=== PATIENT | male | born 1945 | race Caucasian/White ===

== ENCOUNTER 2018-02-10 10:07 | Observation (INO) ==
--- NOTE | 2018-02-10 10:25 | Emergency Department Note ---
Disposition Clinical Impression: Generalized weakness, Pain in left hip Fall with injury Qualifiers: Encounter type: initial encounter Qualified Code(s): W19.XXXA - Unspecified fall, initial encounter Disposition: Admitted As Inpatient Condition: Fair Referrals: Kalpesh Bartlett MD [Primary Care Provider] - Forms: ED Satisfaction Letter Time of Disposition: 11:36 Fall HPI - General Chief Complaint: ED Fall Stated Complaint: Left hip pain Time Seen by Provider: 02/10/18 10:15 Source: patient, family Mode of arrival: ambulatory Limitations: no limitations Nursing Notes Reviewed: Yes Vital Signs Reviewed: Yes - History of Present Illness HPI Narrative: Nontoxic-appearing 72-year-old male with a history of progressive supranuclear palsy presents for evaluation of left hip pain status post fall yesterday at home. The patient's states a history of progressively more frequent falls at home due to his underlying condition. The patient states that he just loses balance and falls directly back, landing on his buttocks. He denies any other injury. He denies any headache, neck pain, or back pain. Both he and his states that it has gotten to the point that they are considering placement into an extended care facility. Pt Subjective Complaint: fall Fall From: standing Place Fall Occurred: home Loss of Consciousness: none Prolonged Down Time?: no Symptoms Prior to Fall: none Location of injury: hip Location of injury - extremities: Left: hip Severity: moderate Severity scale (1-10): 7 Quality: dull, aching Associated symptoms (after fall): Reports: denies. Denies: headache, neck pain - Related Data Home Medications Medication Instructions Recorded Confirmed Aspirin Enteric Coated [Aspirin EC] 81 mg PO DAILY 04/23/15 04/23/15 Cholecalciferol (Vitamin D3) 800 unit PO DAILY 04/23/15 04/23/15 [Vitamin D3] Losartan [Cozaar] 25 mg PO QAM 04/23/15 04/23/15 Metoprolol [Lopressor] 12.5 mg PO BID 04/23/15 04/23/15 Niacin 100 mg PO DAILY 04/23/15 04/23/15 Nitroglycerin [Nitrostat] 0.4 mg SL AD PRN 04/23/15 04/23/15 [place]-3S/Dha/Epa/Fish Oil [Fish 600 mg PO TID 04/23/15 04/23/15 Oil 1,200 mg Softgel] Simvastatin [Zocor] 40 mg PO HS 04/23/15 04/23/15 Ubidecarenone [Co Q-10] 10 mg PO DAILY 04/23/15 04/23/15 Previous Rx's Medication Instructions Recorded OxyCODONE Immed Rel [Roxicodone 5 5 - 10 mg PO Q6HR PRN #40 tablet 04/23/15 MG] Hydrocodone/Acetaminophen [[place] 1 tab PO Q6H PRN #8 tab 04/03/16 5-325 Tablet] Allergies Allergy/AdvReac Type Severity Reaction Status Date / Time losartan Allergy See Verified 11/10/17 02:19 Comments atorvastatin [From Lipitor] AdvReac See Verified 11/10/17 02:06 Comments lisinopril AdvReac Cough Verified 11/10/17 02:06 niacin AdvReac Nausea Verified 11/10/17 02:06 [From Niaspan Extended-Release] All systems ED: reviewed and negative except as stated. Constitutional: Denies: fever, chills, weakness, weight change Eyes: Denies: eye pain, eye discharge, vision change ENT ED: Denies: ear pain, throat pain, dental pain, hearing loss, epistaxis, congestion, dysphagia Cardiovascular: Denies: chest pain, palpitations, dyspnea on exertion, edema, syncope Respiratory: Denies: cough, dyspnea, wheezes, hemoptysis, stridor Gastrointestinal: Denies: abdominal pain, nausea, vomiting, diarrhea, constipation, hematemesis, melena, hematochezia Genitourinary: Denies: urgency, dysuria, frequency, hematuria Musculoskeletal: Reports: as per HPI, arthralgia (Left hip pain). Denies: back pain, neck pain, myalgia Integumentary: Denies: rash, abrasion, lesions Neurological: Denies: headache, weakness, numbness, paresthesias, confusion, abnormal gait, vertigo Psychiatric: Denies: anxiety, depression, suicidal thoughts, homicidal thoughts , auditory hallucinations, visual hallucinations Endocrine: Denies: fatigue Hematological/Lymphatic: Denies: easy bleeding, easy bruising Allergic/Immunologic: Denies: facial swelling, urticaria Fall PMH - Past Medical History Medical history: Reports: hypertension, myocardial infarction Psychiatric history: Reports: no psych history - Social History Smoking Status: Never smoker Alcohol use: Reports: none Drug use: Reports: none Physical Exam - General Limitations: no limitations General appearance: alert, in no apparent distress - Head Head exam: atraumatic, normocephalic, normal inspection - Eye Eye exam: Present: normal appearance, PERRL, EOMI. Absent: nystagmus - ENT ENT exam: mucous membranes moist - Neck Neck exam: Present: normal inspection, full ROM, trachea midline - Chest Chest inspection: Present: normal inspection, symmetric chest wall rise. Absent : tenderness - Abdominal Exam Abdominal exam: Present: soft, Non-Tender - Expanded Lower Extremity Exam Hip/Pelvis exam: Present: tenderness (Left hip tender to palpation diffusely), pelvis stable. Absent: full ROM (Range of motion limited by pain, left hip), deformity, crepitus, external rotation, internal rotation, shortening Upper leg exam: Present: normal inspection, full ROM Knee exam: Present: normal inspection, full ROM Lower leg exam: Present: normal inspection, full ROM Ankle exam: Present: normal inspection, full ROM Foot/toe exam: Present: normal inspection, full ROM Neurovascular/Tendon exam: Present: normal capillary refill. Absent: pulse deficit, motor deficit, sensory deficit, tendon deficit, extremity cold to touch Gait: not tested/not observed - Back Exam Back exam: Present: normal inspection, full ROM. Absent: tenderness, vertebral tenderness - Neurological Exam Neurological exam: Present: alert, oriented X3 - Psychiatric Psychiatric exam: Present: normal affect, normal mood - Skin Skin exam: Present: warm, dry, intact, normal color Course Course Narrative: I have spoken with the social work or building contractor regarding the patient and spouse' s request for the possibility of [facility] facility placement. After evaluation by the social economist, the patient will require an observation period in the hospital before placement can be achieved. 1100: I spoke with Dr. Holguin, of the hospitalist services agreed to accept the patient for admission to the hospitalist care for observation. I discussed this patient's case with Dr. Rogers. Dr. Rogers has had a [id number] evaluation with the patient as well and agrees with the aforementioned plan. Upon further questioning, the patient's spouse states that several days ago, the patient did hit the right side of his head when he fell. Given the patient' s age and that he is on aspirin, a CT without contrast of the head and brain will be obtained. We will also complete some screening labs as the patient has complained of progressive generalized weakness as well. Vital Signs Temperature 98.2 F 02/10/18 10:16 Pulse Rate 84 02/10/18 10:16 Respiratory Rate 16 02/10/18 10:16 Blood Pressure 123/82 02/10/18 10:16 O2 Sat by Pulse Oximetry 96 02/10/18 10:16 Temperature 98.2 F 02/10/18 10:16 Pulse Rate 84 02/10/18 10:16 Respiratory Rate 16 02/10/18 10:16 Blood Pressure 123/82 02/10/18 10:16 O2 Sat by Pulse Oximetry 96 02/10/18 10:16 Oxygen Delivery Oxygen Delivery Room Air Fall - Medical Records Medical records reviewed: Yes I reviewed the patient's medical records. - Lab Data Lab results reviewed: Yes I reviewed the patient's lab results. - Radiology Data Radiology results reviewed: Yes I reviewed the patient's radiology results.
--- NOTE | 2018-02-10 11:31 | Emergency Department Note ---
Disposition Clinical Impression: Generalized weakness, Pain in left hip Fall with injury Qualifiers: Encounter type: initial encounter Qualified Code(s): W19.XXXA - Unspecified fall, initial encounter Disposition: Admitted As Inpatient Condition: Fair Fall HPI - General Chief Complaint: ED Fall Stated Complaint: Left hip pain Time Seen by Provider: 02/10/18 10:15 Source: patient, family Mode of arrival: ambulatory - History of Present Illness Place Fall Occurred: home Associated symptoms (after fall): Reports: denies. Denies: headache, neck pain - Related Data Home Medications Medication Instructions Recorded Confirmed Aspirin Enteric Coated [Aspirin EC] 81 mg PO DAILY 04/23/15 04/23/15 Cholecalciferol (Vitamin D3) 800 unit PO DAILY 04/23/15 04/23/15 [Vitamin D3] Losartan [Cozaar] 25 mg PO QAM 04/23/15 04/23/15 Metoprolol [Lopressor] 12.5 mg PO BID 04/23/15 04/23/15 Niacin 100 mg PO DAILY 04/23/15 04/23/15 Nitroglycerin [Nitrostat] 0.4 mg SL AD PRN 04/23/15 04/23/15 [place]-3S/Dha/Epa/Fish Oil [Fish 600 mg PO TID 04/23/15 04/23/15 Oil 1,200 mg Softgel] Simvastatin [Zocor] 40 mg PO HS 04/23/15 04/23/15 Ubidecarenone [Co Q-10] 10 mg PO DAILY 04/23/15 04/23/15 Previous Rx's Medication Instructions Recorded OxyCODONE Immed Rel [Roxicodone 5 5 - 10 mg PO Q6HR PRN #40 tablet 04/23/15 MG] Hydrocodone/Acetaminophen [[place] 1 tab PO Q6H PRN #8 tab 04/03/16 5-325 Tablet] Allergies Allergy/AdvReac Type Severity Reaction Status Date / Time losartan Allergy See Verified 11/10/17 02:19 Comments atorvastatin [From Lipitor] AdvReac See Verified 11/10/17 02:06 Comments lisinopril AdvReac Cough Verified 11/10/17 02:06 niacin AdvReac Nausea Verified 11/10/17 02:06 [From Niaspan Extended-Release] Constitutional: Denies: fever, chills, weakness, weight change Eyes: Denies: eye pain, eye discharge, vision change ENT ED: Denies: ear pain, throat pain, dental pain, hearing loss, epistaxis, congestion, dysphagia Cardiovascular: Denies: chest pain, palpitations, dyspnea on exertion, edema, syncope Respiratory: Denies: cough, dyspnea, wheezes, hemoptysis, stridor Gastrointestinal: Denies: abdominal pain, nausea, vomiting, diarrhea, constipation, hematemesis, melena, hematochezia Genitourinary: Denies: urgency, dysuria, frequency, hematuria Musculoskeletal: Reports: as per HPI, arthralgia (Left hip pain). Denies: back pain, neck pain, myalgia Integumentary: Denies: rash, abrasion, lesions Neurological: Denies: headache, weakness, numbness, paresthesias, confusion, abnormal gait, vertigo Psychiatric: Denies: anxiety, depression, suicidal thoughts, homicidal thoughts , auditory hallucinations, visual hallucinations Endocrine: Denies: fatigue Hematological/Lymphatic: Denies: easy bleeding, easy bruising Allergic/Immunologic: Denies: facial swelling, urticaria Fall PMH - Past Medical History Medical history: Reports: hypertension, myocardial infarction Psychiatric history: Reports: no psych history - Social History Smoking Status: Never smoker Alcohol use: Reports: none Drug use: Reports: none Physical Exam - General Limitations: no limitations General appearance: alert, in no apparent distress Course Vital Signs Temperature 98.2 F 02/10/18 10:16 Pulse Rate 84 02/10/18 10:16 Respiratory Rate 16 02/10/18 10:16 Blood Pressure 123/82 02/10/18 10:16 O2 Sat by Pulse Oximetry 96 02/10/18 10:16 Temperature 98.0 F 02/10/18 14:00 Pulse Rate 62 02/10/18 14:00 Respiratory Rate 15 02/10/18 14:00 Blood Pressure 130/76 02/10/18 14:00 O2 Sat by Pulse Oximetry 97 02/10/18 14:00 Oxygen Delivery Oxygen Delivery Room Air Fall - Lab Data Result diagrams: 02/10/18 11:26 02/10/18 11:26 Lab Results 02/10/18 02/10/18 02/10/18 Range/Units 11:26 11:26 11:52 WBC 7.5 (4.3-11.1) K/mcL RBC 4.98 (4.19-5.50) M/mcL Hgb 15.3 (12.9-16.9) g/dL Hct 45.5 (37.5-50.1) % MCV 91.4 (83.0-100.0) fL MCH 30.7 (28.0-33.3) pg MCHC 33.6 (31.6-35.5) g/dL RDW 13.2 (11.5-14.5) % Plt Count 196 (140-400) K/mcL MPV 10.4 (9.4-12.4) fL Immature Gran % 0.5 (0-4) % Seg Neutrophils % 55.3 % Lymphocytes % 34.1 % Monocytes % 9.0 % Eosinophils % 0.8 % Basophils % 0.3 % Neutrophils # 4.1 (1.6-8.9) K/mcL Lymphocytes # 2.5 (0.6-4.6) K/mcL Monocytes # 0.7 (0.0-1.3) K/mcL Eosinophils # 0.1 (0.0-0.6) K/mcL Basophils # 0.0 (0.0-0.2) K/mcL Sodium 139 (136-145) mEq/L Potassium 4.3 (3.5-5.1) mEq/L Chloride 107 (98-107) mEq/L Carbon Dioxide 27 (23-29) mEq/L BUN 16 (8-23) mg/dL Creatinine 0.94 (0.70-1.30) mg/dL Est GFR ( Amer) > 60 (> 60) Est GFR (Non-Af Amer) > 60 (> 60) BUN/Creatinine Ratio 17 (6-26) Glucose 114 H (70-105) mg/dL Calculated Osmolality 290 (280-300) Calcium 9.6 (8.6-10.3) mg/dL Urine Color Yellow (Yellow) Urine Clarity Clear (Clear) Urine pH 5.5 (5.0-8.0) pH Units Ur Specific [place] 1.018 (1.010-1.025) Urine Protein Negative (Neg-Trace) mg/dL Urine Glucose (UA) Normal (Normal) mg/dL Urine Ketones Negative (Negative) mg/dL Urine Blood Negative (Negative) Urine Nitrite Negative (Negative) Urine Bilirubin Negative (Negative) Urine Urobilinogen Normal (Normal) mg/dL Ur Leukocyte Esterase Negative (Negative) Ur Culture Indicated? NO (NO) Attestation Statement - Attestation Attestation: Patient seen in conjunction with RONY Mclean. Please see his note for further details including conversations with consultants. Patient is a 72-year-old gentleman with a progressive superior nuclear palsy and macular degeneration who is here today with complaints of frequent falls and persistent left hip pain. Patient believes that his falls are secondary to his progressive superior nuclear palsy and limited vision. He has had progressive weakness over the last several months along with decreased ability to control his urine. The patient does not have any tenderness to palpation throughout the spine or left hip or femur. Complains of being too weak and pain with trying to stand up. At this point the patient is with his and does not believe that he can return home and be able to take care of himself. I do agree with this assessment and social work job titles seen the patient is unable to get him placed in the prison today. My evaluation x-rays been performed and did not show any acute fractures. We will perform blood work to further evaluate cause of weakness. CT of his head will also be performed to rule out hydrocephalus. Patient has already been accepted by the hospitalist.
[2018-02-10] MEDS ORDERED: Naloxone 0.4 MG/ML INJ IVP PRN (11:57)
[2018-02-10 11:59] LABS: Basophils % 0.3 %; Eosinophils # 0.1 K/mcL (0.0-0.6); Eosinophils % 0.8 %; Hematocrit 45.5 % (37.5-50.1); Hemoglobin 15.3 g/dL (12.9-16.9); Immature Granulocytes % 0.5 % (0-4); Lymphocytes # 2.5 K/mcL (0.6-4.6); Lymphocytes % 34.1 %; Mean Corpuscular HGB Conc 33.6 g/dL (31.6-35.5); Mean Corpuscular Hemoglobin 30.7 pg (28.0-33.3); Mean Corpuscular Volume 91.4 fL (83.0-100.0); Mean Platelet Volume 10.4 fL (9.4-12.4); Monocytes # 0.7 K/mcL (0.0-1.3); Neutrophils # 4.1 K/mcL (1.6-8.9); Platelet Count 196 K/mcL (140-400); Red Blood Count 4.98 M/mcL (4.19-5.50); Red Cell Distribution Width 13.2 % (11.5-14.5); Segmented Neutrophils % 55.3 %
--- NOTE | 2018-02-10 12:13 | Internal Med History&Physical ---
<Kim Williasmon - Last Filed: 02/10/18 12:49> Date of Encounter: 02/10/18 Time of Encounter: 12:07 Internal Medicine - H&P: HPI Chief complaint: Frequent falls Admitted From: Home Plans for Post Hospital Care: Transfer Teletypewriter Operator Care ( hoping to get short term LTC placement) History of present illness: Mr. Sheth is a 72 year old male with history of CAD dyslipidemia and hypertension. Patient diagnosed with progressive supranuclear palsy in 2013, and has progressive has progressively worsened over the past few months including memory loss and mobility. at bedside and had concerns regarding worsening of the progressive supranuclear palsy. She is hoping for short term LTC placement. Patient is also having trouble with urinary incontinence. He indicated that he has been coughing up phlegm for a while. The ED ordered UA, CT of head d/t some reported weakness by the patient. CXR was completed due to patient reports of coughing up phlegm at home. Lungs are currently diminished CT of head negative for acute abnormality. Chest x-ray is also negative for disease. Wbc is 7.5. Lactic is 1.2. Na is 140. Waiting for UA. Past Med Surg Social Fam HX - Past Medical History Medical history: hypertension, myocardial infarction Additional medical history: "PSP" Psychiatric history: no psych history - Past Surgical History Additional surgical history: cardiac stent x1. RTSR - Social History Smoking Status: Never smoker Smokeless Tobacco Status: No Alcohol use: none Drug use: none - Family History Sister Living Status: Still Living Hx Family Cardiac Disorders: Yes Internal Medicine - H&P: Meds Aspirin Enteric Coated [Aspirin EC] 81 mg PO DAILY 04/23/15 [History] Cholecalciferol (Vitamin D3) [Vitamin D3] 800 unit PO DAILY 04/23/15 [History] Losartan [Cozaar] 25 mg PO QAM 04/23/15 [History] Metoprolol [Lopressor] 12.5 mg PO BID 04/23/15 [History] Niacin 100 mg PO DAILY 04/23/15 [History] Nitroglycerin [Nitrostat] 0.4 mg SL AD PRN 04/23/15 [History] [place]-3S/Dha/Epa/Fish Oil [Fish Oil 1,200 mg Softgel] 600 mg PO TID 04/23/15 [ History] OxyCODONE Immed Rel [Roxicodone 5 MG] 5 - 10 mg PO Q6HR PRN #40 tablet 04/23/15 [Rx] Simvastatin [Zocor] 40 mg PO HS 04/23/15 [History] Ubidecarenone [Co Q-10] 10 mg PO DAILY 04/23/15 [History] Hydrocodone/Acetaminophen [[place] 5-325 Tablet] 1 tab PO Q6H PRN #8 tab 04/03/16 [Rx] 3 Allergy/AdvReac Type Severity Reaction Status Date / Time losartan Allergy See Verified 11/10/17 02:19 Comments atorvastatin [From Lipitor] AdvReac See Verified 11/10/17 02:06 Comments lisinopril AdvReac Cough Verified 11/10/17 02:06 niacin AdvReac Nausea Verified 11/10/17 02:06 [From Niaspan Extended-Release] All Systems PM: A 10-system review of systems was performed and is negative for pertinent findings except as documented above in the HPI. - Constitutional Constitutional: weakness, no chills, no fever(s), no night sweats - EENT Eyes: no change in vision, no discharge, no pain, no photophobia Ears: no ear discharge, no ear pain, no tinnitus Nose, mouth and throat: no dysphagia, no nasal discharge, no neck pain, no sore throat - Cardiovascular Cardiovascular ROS IM: no chest pain, no diaphoresis, no dyspnea, no lightheadedness, no palpitations, no syncope - Respiratory Respiratory: excessive phlegm production, no cough, no dyspnea, no wheezing - Gastrointestinal Gastrointestinal: no abdominal pain, no diarrhea, no hematemesis, no hematochezia, no melena, no nausea, no vomiting - Genitourinary Genitourinary ROS male: urinary incontinence - Musculoskeletal Musculoskeletal ROS IM: no numbness, no tingling - Integumentary Integumentary IM: no rash, no unusual bruising - Neurological Neurological ROS: lack of coordination, memory loss, no confusion, no convulsions, no focal weakness, no numbness, no tingling, no tremor(s) - Hematologic/Lymphatic Hematologic/Lymphatic: no easy bruising - Constitutional Vitals: Temp Pulse Resp BP Pulse Ox 98.2 F 84 16 123/82 96 02/10/18 10:16 02/10/18 10:16 02/10/18 10:16 02/10/18 10:16 02/10/18 10:16 General appearance: Present: cooperative, A&O X 3, answers questions appropriately - Head Head exam: Present: atraumatic, normocephalic - Eye Eye exam: Present: PERRL, conjuntiva pink, sclera anicteric Pupils: Present: PERRL - Neck Neck exam general surgery: Present: supple, trachea midline. Absent: lymphadenopathy - Respiratory Respiratory exam: Present: decreased breath sounds. Absent: accessory muscle use, rales, rhonchi, wheezes - Cardiovascular Cardiovascular exam: Present: RRR, +S1, +S2. Absent: diastolic murmur, gallop, rubs, systolic murmur - GI/Abdominal GI/Abdominal exam: Present: normal bowel sounds, soft, no peritoneal signs. Absent: distended, tenderness - Extremities Exam Extremities exam: Present: warm, radial pulses palpable and symmetrical. Absent : calf tenderness, cyanotic, pedal edema - Neurological Exam Neurological exam: Present: CN II-XII intact, oriented X3, no focal deficits, strengths equal and symetr throughout (Generalized weakness throughout). Absent : pronater drift, facial droop, speech deficit - Skin Skin exam: Present: dry, intact Internal Med - H&P Results - Labs CBC & Chem 7: 02/10/18 11:26 02/10/18 11:26 Labs: Short CBC 02/10/18 Range/Units 11:26 WBC 7.5 (4.3-11.1) K/mcL Hgb 15.3 (12.9-16.9) g/dL Hct 45.5 (37.5-50.1) % Plt Count 196 (140-400) K/mcL Neutrophils # 4.1 (1.6-8.9) K/mcL - Impressions ITS Impressions Hip X-Ray 02/10/18 10:23 IMPRESSION: No acute abnormality of the left hip D/ / Adams Miller MD / Adams Miller MD Interpreting Provider: Adams Miller MD Lumbar Spine X-Ray 07/27/18 10:23 IMPRESSION: 1. No acute abnormality identified of the lumbar spine para 2. Degenerative changes predominately of the lower lumbar spine. D/ / Josesito Barcenas MD / Josesito Barcenas MD Interpreting Provider: Josesito Barcenas MD Chest X-Ray 02/10/18 11:31 IMPRESSION: 1. No active pulmonary disease. D/ / Danial Hankins MD / Danial Hankins MD Interpreting Provider: Danial Hankins MD - Assessment and plan (1) Fall with injury Current Visit: Yes Status: Acute Assessment and plan: Likely related to the worsening, progressive supra nuclear palsy. However, the patient indicated some issues as stated in the HPI. The recent fall is caused left hip pain. Left hip x-ray is negative for fracture. Lumbar spine x-ray also negative with degenerative changes in the lower lumbar spine. PT/OT consult Social service in the event the falling is not related to a specific cause or infection. Up with assist only Orthostatics daily 2 Qualifiers: Encounter type: initial encounter Qualified Code(s): W19.XXXA - Unspecified fall, initial encounter (2) Generalized weakness Current Visit: Yes Status: Acute Assessment and plan: Waiting for CT of brain/head results PT/ OT consult Up with assistance daily (3) Hypertension Current Visit: Yes Status: Acute Qualifiers: Hypertension type: essential hypertension Qualified Code(s): I10 - Essential (primary) hypertension (4) Pain in left hip Current Visit: Yes Status: Acute Assessment and plan: Left hip x-rays negative for fracture Follow-up plan above for falls (5) CAD (coronary artery disease) Current Visit: No Status: Acute Assessment and plan: Chronic condition Continue home meds Qualifiers: Coronary Disease-Associated Artery/Lesion type: unspecified vessel or lesion type [place] vs. transplanted heart: [place] heart Associated angina: angina presence unspecified Qualified Code(s): I25.10 - Atherosclerotic heart disease of [place] coronary artery without angina pectoris (6) Dyslipidemia Current Visit: No Status: Acute Assessment and plan: Continue home medications (7) Progressive supranuclear palsy Current Visit: Yes Status: Chronic Assessment and plan: Plan the same as above - Time Spent With Patient Total time spent is greater than 50% in coordination of care (as documented) at patient's floor/unit and/or counseling patient: <Mehdi Holguin S - Last Filed: 02/10/18 14:51> Date of Encounter: 02/10/18 Internal Medicine - H&P: HPI History of present illness: Mr. Sheth is a 72 year old male All Systems PM: A 10-system review of systems was performed and is negative for pertinent findings except as documented above in the HPI. - Constitutional Vitals: Temp Pulse Resp BP Pulse Ox 98.0 F 62 15 130/76 97 02/10/18 14:00 02/10/18 14:00 02/10/18 14:00 02/10/18 14:00 02/10/18 14:00 Internal Med - H&P Results - Labs CBC & Chem 7: 02/10/18 11:26 02/10/18 11:26 - Attending Attestation I have seen and examined the patient with Kim Williamson and agree with his/her assessment and plan. 72-year-old male with history of progressive supranuclear palsy presented with frequent fall for the last several weeks - months. Afebrile, hemodynamic is stable, unremarkable physical exam. Network, head CT, chest x-ray were all unremarkable. X-ray of the hip and lumbar spine did not show any evidence of traumatic sequelae. Patient will be admitted for PT/OT and for placement evaluation. Mehdi Holguin MD - Time Spent With Patient Total time spent is greater than 50% in coordination of care (as documented) at patient's floor/unit and/or counseling patient:
[2018-02-10 12:19] LABS: BUN/Creatinine Ratio 17 (6-26); Blood Urea Nitrogen 16 mg/dL (8-23); Calcium 9.6 mg/dL (8.6-10.3); Carbon Dioxide 27 mEq/L (23-29); Chloride 107 mEq/L (98-107); Glucose 114 mg/dL (70-105); Osmolality,Calculated 290 (280-300); Potassium 4.3 mEq/L (3.5-5.1); Sodium 139 mEq/L (136-145); eGFR For Non-African Americans > 60 (> 60)
[2018-02-10 12:30] LABS: Bilirubin,Urine Negative (Negative); Blood,Urine Negative (Negative); Clarity,Urine Clear (Clear); Color,Urine Yellow (Yellow); Glucose,Urine (UA) Normal (Normal); Ketones,Urine Negative (Negative); Leukocyte Esterase,Urine Negative (Negative); Nitrite,Urine Negative (Negative); PH,Urine 5.5 pH Units (5.0-8.0); Protein,Urine Negative (Neg-Trace); Specific Gravity,Urine 1.018 (1.010-1.025); Urobilinogen,Urine Normal (Normal)
[2018-02-10] MEDS ORDERED: Nitroglycerin 0.4 MG TAB.SUBL SL PRN (14:07)
[2018-02-10] MEDS ORDERED: *HR* HYDROcodone/Acet 5/325 mg TABLET PO PRN (14:07)
[2018-02-10] MEDS: FISH OIL PO SCH (15:57)
[2018-02-10] MEDS: DHA PO SCH (15:57)
[2018-02-10] MEDS: EPA PO SCH (15:57)
[2018-02-10] MEDS: OMEGA PO SCH (15:57)
[2018-02-11 01:52] LABS: Hematocrit 46.5 % (37.5-50.1); Hemoglobin 15.9 g/dL (12.9-16.9); Mean Corpuscular HGB Conc 34.2 g/dL (31.6-35.5); Mean Corpuscular Hemoglobin 31.4 pg (28.0-33.3); Mean Corpuscular Volume 91.7 fL (83.0-100.0); Mean Platelet Volume 10.6 fL (9.4-12.4); Platelet Count 195 K/mcL (140-400); Red Blood Count 5.07 M/mcL (4.19-5.50); Red Cell Distribution Width 13.2 % (11.5-14.5)
[2018-02-11 02:19] LABS: Blood Urea Nitrogen 16 mg/dL (8-23); Carbon Dioxide 24 mEq/L (23-29); Chloride 108 mEq/L (98-107); Potassium 3.7 mEq/L (3.5-5.1); Sodium 138 mEq/L (136-145)
[2018-02-11 02:20] LABS: Alanine Aminotransferase 15 Units/L (7-52); Albumin/Globulin Ratio 1.6 (1.1-2.2); Alkaline Phosphatase 58 Units/L (34-104); Aspartate Amino Transferase 15 Units/L (13-39); BUN/Creatinine Ratio 16 (6-26); Bilirubin,Total 0.4 mg/dL (0.3-1.0); Calcium 9.3 mg/dL (8.6-10.3); Chol/HDL Ratio 3.6 (0-4.9); Cholesterol 131 mg/dL (< 200); Globulin 2.5 g/dL (2.4-3.5); Glucose 116 mg/dL (70-105); HDL Cholesterol 36 mg/dL (40-59); LDL Cholesterol,Calculated 68 mg/dL (0-99); Osmolality,Calculated 288 (280-300); Total Protein 6.5 g/dL (6.4-8.9); Triglycerides 137 mg/dL (< 150); eGFR For Non-African Americans > 60 (> 60)
[2018-02-11] MEDS: Cholecalciferol (D-3) 1,000 UNIT TABLET PO SCH (09:27)
[2018-02-11] MEDS: Aspirin Enteric Coated 81 MG Tablet PO SCH (09:27)
[2018-02-11] MEDS: NIACIN 100 MG PO SCH (09:29)
[2018-02-11] MEDS: OMEGA PO SCH ×3 (09:29→14:57)
[2018-02-11] MEDS: DHA PO SCH ×3 (09:29→14:57)
[2018-02-11] MEDS: (Ubidecarenone [Co Q-10] 10 MG) PO SCH (09:29)
[2018-02-11] MEDS: FISH OIL PO SCH ×3 (09:29→14:57)
[2018-02-11] MEDS: EPA PO SCH ×3 (09:29→14:57)
--- NOTE | 2018-02-11 14:18 | Internal Med Progress Note ---
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 Assessment and plan: Worsening weakness will cont symptomatic and supportive care PT / OT eval (2) Ambulatory dysfunction Current Visit: Yes Status: Acute Assessment and plan: PT / OT eval will check TSH, B12, Folic acid levels (3) Generalized weakness Current Visit: Yes Status: Acute (4) Physical deconditioning Current Visit: Yes Status: Acute Assessment and plan: May need ECF placement (5) Hypertension Current Visit: Yes Status: Acute Assessment and plan: resumed home meds stable with home meds Qualifiers: Hypertension type: essential hypertension Qualified Code(s): I10 - Essential (primary) hypertension (6) Pain in left hip Current Visit: Yes Status: Acute Assessment and plan: due to DJD cont pain meds PRN (7) Dyslipidemia Current Visit: No Status: Acute Assessment and plan: on statin (8) Frequent falls Current Visit: Yes Status: Acute - Time Spent With Patient Total time spent is greater than 50% in coordination of care (as documented) at patient's floor/unit and/or counseling patient: - Subjective Interval history: Mr. Sheth is a 72 year old male with history of CAD dyslipidemia and hypertension. Patient diagnosed with progressive supranuclear palsy in 2013, and has progressively worsened over the past few months including memory loss and mobility. Patient does have trouble with urinary incontinence. He indicated that he has been coughing up phlegm for a while. The work up in the ER, CT of head negative for acute abnormality. Chest x-ray is also negative for disease. Pt is alert, awake and O x 3. Denied any CP. - Constitutional Vitals: Temp Pulse Resp BP Pulse Ox 97.9 F 63 16 126/78 93 02/11/18 11:25 02/11/18 11:25 02/11/18 11:25 02/11/18 11:25 02/11/18 11:25 General appearance: Present: cooperative, A&O X 3, answers questions appropriately - Head Head exam: Present: atraumatic, normal inspection - Neck Neck exam general surgery: Present: supple - Respiratory Respiratory exam: Present: decreased breath sounds. Absent: rales, respiratory distress, rhonchi, wheezes - Cardiovascular Cardiovascular exam: Present: RRR, +S1, +S2. Absent: tachycardia - GI/Abdominal GI/Abdominal exam: Present: normal bowel sounds, soft. Absent: rebound, rigid, tenderness - Extremities Exam Extremities exam: Present: pedal edema. Absent: calf tenderness, tenderness - Back Exam Back exam: Absent: CVA tenderness (L), CVA tenderness (R) - Neurological Exam Neurological exam: Present: alert, motor sensory deficit, oriented X3 - Psychiatric Psychiatric exam: Present: depressed Internal Medicine: Result - Labs CBC & Chem 7: 02/11/18 01:01 02/11/18 01:01 Labs: Short CBC 02/11/18 Range/Units 01:01 WBC 8.6 (4.3-11.1) K/mcL Hgb 15.9 (12.9-16.9) g/dL Hct 46.5 (37.5-50.1) % Plt Count 195 (140-400) K/mcL BMP 02/11/18 01:01 Sodium 138 Potassium 3.7 Chloride 108 H Carbon Dioxide 24 BUN 16 Creatinine 0.97 Glucose 116 H Calcium 9.3 Liver Function 02/11/18 Range/Units 01:01 Total Bilirubin 0.4 (0.3-1.0) mg/dL AST 15 (13-39) Units/L ALT 15 (7-52) Units/L Alkaline Phosphatase 58 (34-104) Units/L Albumin 4.0 (3.5-5.7) g/dL Consult Discharge Plan - Plan Referrals: Kalpesh Bartlett MD [Primary Care Provider] -
[2018-02-12] MEDS: OMEGA PO SCH ×3 (00:56→14:43)
[2018-02-12] MEDS: FISH OIL PO SCH ×3 (00:56→14:43)
[2018-02-12] MEDS: DHA PO SCH ×3 (00:56→14:43)
[2018-02-12] MEDS: EPA PO SCH ×3 (00:56→14:43)
[2018-02-12 06:51] LABS: Prealbumin 27.2 mg/dL (17.0-34.0)
[2018-02-12 06:52] LABS: BUN/Creatinine Ratio 18 (6-26); Blood Urea Nitrogen 16 mg/dL (8-23); Calcium 9.5 mg/dL (8.6-10.3); Carbon Dioxide 24 mEq/L (23-29); Chloride 108 mEq/L (98-107); Glucose 144 mg/dL (70-105); Osmolality,Calculated 292 (280-300); Potassium 3.6 mEq/L (3.5-5.1); Sodium 139 mEq/L (136-145); eGFR For Non-African Americans > 60 (> 60)
[2018-02-12] MEDS: Cholecalciferol (D-3) 1,000 UNIT TABLET PO SCH (09:24)
[2018-02-12] MEDS: Aspirin Enteric Coated 81 MG Tablet PO SCH (09:24)
[2018-02-12] MEDS: NIACIN 100 MG PO SCH (10:17)
[2018-02-12] MEDS: (Ubidecarenone [Co Q-10] 10 MG) PO SCH (10:17)
--- NOTE | 2018-02-12 13:36 | Internal Med Progress Note ---
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 Assessment and plan: Worsening weakness will cont symptomatic and supportive care PT / OT eval may need placement SW consulted (2) Ambulatory dysfunction Current Visit: Yes Status: Acute Assessment and plan: PT / OT eval TSH - 6.18, B12-613, Folic acid - 12.2 Will check T4 and T3 levels (3) Generalized weakness Current Visit: Yes Status: Acute (4) Physical deconditioning Current Visit: Yes Status: Acute Assessment and plan: May need ECF placement (5) Hypertension Current Visit: Yes Status: Acute Assessment and plan: resumed home meds stable with home meds Qualifiers: Hypertension type: essential hypertension Qualified Code(s): I10 - Essential (primary) hypertension (6) Pain in left hip Current Visit: Yes Status: Acute Assessment and plan: due to DJD cont pain meds PRN (7) Dyslipidemia Current Visit: No Status: Acute Assessment and plan: on statin (8) Frequent falls Current Visit: Yes Status: Acute (9) Protein-calorie malnutrition, moderate Current Visit: Yes Status: Acute Assessment and plan: Does look like he might have PCM - moderate will check Pre albumin levels in AM [employer] Practitioner consulted - Time Spent With Patient Total time spent is greater than 50% in coordination of care (as documented) at patient's floor/unit and/or counseling patient: - Subjective Interval history: Mr. Sheth is a 72 year old male with history of CAD dyslipidemia and hypertension. Patient diagnosed with progressive supranuclear palsy in 2013, and has progressively worsened over the past few months including memory loss and mobility. Patient does have trouble with urinary incontinence. He indicated that he has been coughing up phlegm for a while. The work up in the ER, CT of head negative for acute abnormality. Chest x-ray is also negative for disease. Pt is alert, awake and O x 3. Denied any CP. No events over night. Tolerating PO intake well. - Constitutional Vitals: Temp Pulse Resp BP Pulse Ox 98.0 F 57 18 111/69 94 02/12/18 10:55 02/12/18 10:55 02/12/18 10:55 02/12/18 10:55 02/12/18 10:55 General appearance: Present: cooperative, A&O X 3, answers questions appropriately - Head Head exam: Present: atraumatic, normal inspection - Neck Neck exam general surgery: Present: supple - Respiratory Respiratory exam: Present: decreased breath sounds. Absent: rales, respiratory distress, rhonchi, wheezes - Cardiovascular Cardiovascular exam: Present: RRR, +S1, +S2. Absent: tachycardia - GI/Abdominal GI/Abdominal exam: Present: normal bowel sounds, soft. Absent: rebound, rigid, tenderness - Extremities Exam Extremities exam: Present: pedal edema. Absent: calf tenderness, tenderness - Neurological Exam Neurological exam: Present: alert, motor sensory deficit, oriented X3 - Psychiatric Psychiatric exam: Present: depressed Internal Medicine: Result - Labs CBC & Chem 7: 02/11/18 01:01 02/12/18 05:35 Labs: BMP 02/12/18 05:35 Sodium 139 Potassium 3.6 Chloride 108 H Carbon Dioxide 24 BUN 16 Creatinine 0.87 Glucose 144 H Calcium 9.5 - VTE Documentation of Mechanical Device: Venous foot pump, device Consult Discharge Plan - Plan Referrals: Kalpesh Bartlett MD [Primary Care Provider] -
[2018-02-13 06:50] LABS: Triiodothyronine (T3) Free 3.16 pg/mL (2.50-3.90)
[2018-02-13] MEDS: DHA PO SCH ×2 (07:39→11:12)
[2018-02-13] MEDS: OMEGA PO SCH ×2 (07:39→11:12)
[2018-02-13] MEDS: EPA PO SCH ×2 (07:39→11:12)
[2018-02-13] MEDS: FISH OIL PO SCH ×2 (07:39→11:12)
--- NOTE | 2018-02-13 09:17 | Internal Med Progress Note ---
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 will continue to work with home health care With increased difficultly managing patient at home usp placement may be appropriate (2) Generalized weakness Current Visit: Yes Status: Acute Assessment and plan: may need ECF placement encourage nutritious diet continue work with OT/PT (3) Hypertension Current Visit: Yes Status: Acute Assessment and plan: Continue home medication caution of orthostatic hypotension lisinopril is held, continue to hold; BP systolic in 120's today Qualifiers: Hypertension type: essential hypertension Qualified Code(s): I10 - Essential (primary) hypertension (4) Frequent falls Current Visit: Yes Status: Acute Assessment and plan: Placement to ECF - Subjective Interval history: Today the patient states he is doing well. No acute changes overnight. Patient states he slept well last night. was in the room. They are waiting to hear back from rehab centers for placement. Patient was awake and lying in bed during exam. was pleasant and repetitive which is his baseline. Denies any pain and has not fallen in several days. He falls daily at home. - Constitutional Vitals: Temp Pulse Resp BP Pulse Ox 98 F 57 14 130/73 93 02/13/18 06:25 02/13/18 06:25 02/13/18 06:25 02/13/18 06:25 02/13/18 06:25 General appearance: Present: cooperative, A&O X 3, answers questions appropriately Exam: patient was pleasant and very repetitive. repeats what he says 5-10 times before moving on. This is his baseline. - Head Head exam: Present: atraumatic, normocephalic - Eye Eye exam: Present: EOMI, normal appearance - Respiratory Respiratory exam: Absent: accessory muscle use, decreased breath sounds, respiratory distress, rhonchi, stridor, wheezes - Cardiovascular Cardiovascular exam: Present: RRR, +S1, +S2. Absent: gallop, +S3, +S4 - GI/Abdominal GI/Abdominal exam: Present: normal bowel sounds, soft. Absent: bruit, diminished bowel sounds, distended, firm, guarding, hyperactive bowel sounds, hypoactive bowel sounds - Expanded Neurological Exam Neurological exam expanded: Present: expressive aphasia (repetitive repeats statements 4-10 times) - Skin Skin exam: Present: dry, intact Internal Medicine: Result - Labs CBC & Chem 7: 02/11/18 01:01 02/12/18 05:35 - VTE Documentation of Mechanical Device: Intermittent pneumatic compression device Consult Discharge Plan - Plan Referrals: Kalpesh Bartlett MD [Primary Care Provider] -
[2018-02-13] MEDS: Cholecalciferol (D-3) 1,000 UNIT TABLET PO SCH (10:10)
[2018-02-13] MEDS: Aspirin Enteric Coated 81 MG Tablet PO SCH (10:10)
[2018-02-13] MEDS: NIACIN 100 MG PO SCH (11:12)
[2018-02-13] MEDS: (Ubidecarenone [Co Q-10] 10 MG) PO SCH (11:12)
[2018-02-13 15:39] VITALS: BP 141/89
--- NOTE | 2018-02-13 18:29 | Discharge Summary ---
- NOTES TO OUTPATIENT PROVIDER Notes to Outpatient Provider: - Follow-up BP, was normal with medications that were given on discharge. Date of Encounter: 02/13/18 Time of Encounter: 18:27 - Discharge Diagnosis (1) Generalized weakness Priority: Primary Status: Acute (2) Pain in left hip Priority: Secondary Status: Acute (3) Dyslipidemia Priority: Secondary Status: Acute (4) Hypertension Priority: Secondary Status: Acute Qualifiers: Hypertension type: essential hypertension Qualified Code(s): I10 - Essential (primary) hypertension (5) Progressive supranuclear palsy Priority: Secondary Status: Chronic (6) Ambulatory dysfunction Priority: Secondary Status: Acute (7) Frequent falls Priority: Secondary Status: Acute (8) Physical deconditioning Priority: Secondary Status: Acute (9) Protein-calorie malnutrition, moderate Priority: Secondary Status: Acute Hospital course: Mr. Sheth is a 72 year old male with history of CAD, progressive supranuclear palsy (diagnosed in 2013) for increasing weakness, frequent falls, left hip pain , decreased mobility, and decreased memory. Symptoms of supranuclear palsy have been worsening over past several months. In the ED he had CT head and chest x-ray that were unremarkable. A urinalysis was negative. He had left hip pain and an x-ray of hip and lumbar spine were negative for any acute abnormalities. Patient was observed for further workup. PT/OT and SW were consulted. Vital signs were stable. Orthostatic vital signs were positive. CBC, BMP, and LFT were unremarkable. PT/OT both recommended SNF but due to insurance, patient was unable to go. Patient's did feel comfortable taking care of him at home with home health care. He was discharged home in stable condition. - Time Spent with Patient Total time spent providing and/or coordinating discharge services: - Discharge Medications Home Medications: Aspirin Enteric Coated [Aspirin EC] 81 mg PO DAILY 04/23/15 [History] Cholecalciferol (Vitamin D3) [Vitamin D3] 800 unit PO DAILY 04/23/15 [History] Metoprolol [Lopressor] 12.5 mg PO BID 04/23/15 [History] Nitroglycerin [Nitrostat] 0.4 mg SL AD PRN 04/23/15 [History] [place]-3S/Dha/Epa/Fish Oil [Fish Oil 1,200 mg Softgel] 600 mg PO TID 04/23/15 [ History] Simvastatin [Zocor] 40 mg PO HS 04/23/15 [History] Ubidecarenone [Co Q-10] 10 mg PO DAILY 04/23/15 [History] FLUoxetine HCl [Prozac] 10 mg PO DAILY 02/11/18 [History] Oxybutynin [Ditropan] 5 mg PO BID 02/11/18 [History] Allergies/Adverse Reactions: 3 Allergy/AdvReac Type Severity Reaction Status Date / Time losartan Allergy See Verified 11/10/17 02:19 Comments atorvastatin [From Lipitor] AdvReac See Verified 11/10/17 02:06 Comments lisinopril AdvReac Cough Verified 11/10/17 02:06 niacin AdvReac Nausea Verified 11/10/17 02:06 [From Niaspan Extended-Release] Date of admission: 02/10/18 12:57 Primary care physician: Kalpesh Bartlett MD Discharging clinician: Jacques Conner - Constitutional Vitals: Temp Pulse Resp BP Pulse Ox 97.6 F 79 16 141/89 94 02/13/18 15:32 02/13/18 15:32 02/13/18 15:32 02/13/18 15:32 02/13/18 15:32 General appearance: Present: cooperative, A&O X 3, answers questions appropriately Exam: - Head Head exam: Present: atraumatic, normocephalic - Eye Eye exam: Present: PERRL, conjuntiva pink, sclera anicteric Pupils: Present: PERRL - Neck Neck exam general surgery: Present: supple, trachea midline. Absent: lymphadenopathy - Respiratory Respiratory exam: Present: decreased breath sounds. Absent: accessory muscle use, rales, rhonchi, wheezes - Cardiovascular Cardiovascular exam: Present: RRR, +S1, +S2. Absent: diastolic murmur, gallop, rubs, systolic murmur - GI/Abdominal GI/Abdominal exam: Present: normal bowel sounds, soft, no peritoneal signs. Absent: distended, tenderness - Extremities Exam Extremities exam: Present: warm, radial pulses palpable and symmetrical. Absent : calf tenderness, cyanotic, pedal edema - Neurological Exam Neurological exam: Present: CN II-XII intact, oriented X3, no focal deficits, strengths equal and symetr throughout (Generalized weakness throughout). Absent : pronater drift, facial droop, speech deficit Repetitive speech. - Skin Skin exam: Present: dry, intact - Patient Status Disposition: Home Health Service Condition: Fair Functional capacity at discharge: uses cane/walker Overall status at discharge: patient is not back to baseline - Discharge Instructions Follow Up With: Kalpesh Bartlett MD [Primary Care Provider] - - Diet and Activity Activity: as per physical therapy Diet: advance to your usual diet - VTE Documentation of Mechanical Device: Intermittent pneumatic compression device
--- NOTE | 2018-02-13 18:49 | Physician Discharge Referral ---
Home Health/Hosp Referral Info Transfer to: Home Health Provider in Charge Post Discharge: PCP - Diagnosis (1) Generalized weakness Priority: Primary Status: Acute (2) Pain in left hip Priority: Secondary Status: Acute (3) Dyslipidemia Priority: Secondary Status: Acute (4) Hypertension Priority: Secondary Status: Acute (5) Progressive supranuclear palsy Priority: Secondary Status: Chronic (6) Ambulatory dysfunction Priority: Secondary Status: Acute (7) Frequent falls Priority: Secondary Status: Acute (8) Physical deconditioning Priority: Secondary Status: Acute (9) Protein-calorie malnutrition, moderate Priority: Secondary Status: Acute - Respiratory Orders Smoking Cessation: Smoking cessation has been advised. For more information, call the [place] Tobacco Quit Line at 6-214-ZMJJNOW. - Services Needed Following services are medically necessary services: Physical Therapy, Occupational Therapy - Transfer Medications Home Medications: Aspirin Enteric Coated [Aspirin EC] 81 mg PO DAILY 04/23/15 [History] Cholecalciferol (Vitamin D3) [Vitamin D3] 800 unit PO DAILY 04/23/15 [History] Metoprolol [Lopressor] 12.5 mg PO BID 04/23/15 [History] Nitroglycerin [Nitrostat] 0.4 mg SL AD PRN 04/23/15 [History] [place]-3S/Dha/Epa/Fish Oil [Fish Oil 1,200 mg Softgel] 600 mg PO TID 04/23/15 [ History] Simvastatin [Zocor] 40 mg PO HS 04/23/15 [History] Ubidecarenone [Co Q-10] 10 mg PO DAILY 04/23/15 [History] FLUoxetine HCl [Prozac] 10 mg PO DAILY 02/11/18 [History] Oxybutynin [Ditropan] 5 mg PO BID 02/11/18 [History] Allergies/Adverse Reactions: 3 Allergy/AdvReac Type Severity Reaction Status Date / Time losartan Allergy See Verified 11/10/17 02:19 Comments atorvastatin [From Lipitor] AdvReac See Verified 11/10/17 02:06 Comments lisinopril AdvReac Cough Verified 11/10/17 02:06 niacin AdvReac Nausea Verified 11/10/17 02:06 [From Niaspan Extended-Release] Certification: Further, I certify that my clinical findings support that this patient is homebound (i.e. absences from home require considerable and taxing effort and are for medical reasons or cheondoism services or infrequently or short duration when for other reasons) because: Homebound Reason: Patient requires assistance of a person or device to safely leave home Attestation: My signature below is to certify that this patient is under my care and that I, or nurse practitioner, or a physician's nurse assistant working with me, has a face-to -face encounter with this patient.
== END 2018-02-13 19:46 | disposition home health service (06) ==
LOC: EMEROO 10:07 → 3ANU 10:07 → SUATTDRO 12:57 → 3ANU 13:14
PROVIDERS: ADMIT Internal Medicine; ATTEND Family Medicine